=== PATIENT | female | born 1955 | race Caucasian/White ===

== ENCOUNTER 2017-04-18 22:46 | Emergency (ER) | payer MEDICAID ==
[~2017-04-18] VITALS: Ht 149.9 cm; Wt 50.0 kg
[~2017-04-18 22:46] MED LIST: SYNTHROID PO
[2017-04-18] MEDS ORDERED: SODIUM CHLORIDE 0.9% 1,000ML IVBOLUS ONE (23:30)
[2017-04-18] MEDS ORDERED: ONDANSETRON 2MG/ML, 2ML IVPush ONE (23:30)
[2017-04-18] MEDS ORDERED: ONDANSETRON 2MG/ML, 2ML ONE (23:32)
[2017-04-18 23:58] LABS: ASPARTATE AMINO TRANSFERASE 63 U/L (15-37); BLOOD UREA NITROGEN 17 mg/dL (7-18)
[2017-04-19] MEDS ORDERED: FAMOTIDINE 20 MG/2 ML ONE (00:26)
[2017-04-19] MEDS ORDERED: FAMOTIDINE 20 MG/2 ML IVPush ONE (00:30)
[2017-04-19] MEDS ORDERED: PROMETHAZINE 25 MG/ML, 1ML IM ONE (02:30)
[2017-04-19] MEDS ORDERED: PROMETHAZINE 25 MG/ML, 1ML ONE (02:57)
[2017-04-19 03:06] VITALS: BP 125/77
== END 2017-04-19 04:08 | disposition home or self-care (01) ==
LOC: ED 23:59
DX: K29.20 Alcoholic gastritis without bleeding (principal)
CPT/HCPCS: 36415; 80053; 83690; 85025; 96361; 96372; 96374; 96375; 99284; J2405; J2550; J7030; S0028

== ENCOUNTER 2017-06-04 09:49 | Inpatient (IN) | payer MEDICAID ==
[~2017-06-04] VITALS: Ht 149.9 cm; Wt 52.1 kg
[2017-06-04] MEDS ORDERED: ONDANSETRON 2MG/ML, 2ML ONE (10:21)
[2017-06-04] MEDS ORDERED: LORazepam 2 MG/ML, 1ML ONE (10:22)
[2017-06-04 10:28] LABS: HEMOGLOBIN 16.7 g/dL (11.7-16.4); WHITE BLOOD COUNT 11.5 x10^3/uL (3.4-10)
[2017-06-04] MEDS ORDERED: LORazepam 2 MG/ML, 1ML IVPush ONE ×2 (10:30→14:00)
[2017-06-04] MEDS ORDERED: ASPIRIN 81 MG TABLET CHEW PO ONE (10:30)
[2017-06-04] MEDS ORDERED: ONDANSETRON 2MG/ML, 2ML IVPush ONE (10:30)
[2017-06-04] MEDS ORDERED: SODIUM CHLORIDE FLUSH 10ML SYR IVF ONE (10:30)
[2017-06-04] MEDS ORDERED: SODIUM CHLORIDE 0.9% 1,000ML IVBOLUS ONE ×2 (10:30→11:30)
[2017-06-04 10:40] LABS: ASPARTATE AMINO TRANSFERASE 156 U/L (15-37); BLOOD UREA NITROGEN 17 mg/dL (7-18)
[2017-06-04 10:53] LABS: IS PT STATUS REG ER OR PRE ER? YES
[2017-06-04 12:11] LABS: DAU SCREEN DISCLAIMER
[2017-06-04 13:18] LABS: GASTRIC OCCULT BLD POSITIVE (NEGATIVE)
[2017-06-04 13:19] LABS: GAS OBC PASS; GASTRIC PH 2 (1-7)
[2017-06-04] MEDS ORDERED: PANTOPRAZOLE 40 MG IV ONE (13:55)
[2017-06-04] MEDS ORDERED: PANTOPRAZOLE 40 MG IV IVPush ONE (14:00)
[2017-06-04] MEDS ORDERED: ONDANSETRON 2MG/ML, 2ML IVPush PRN (15:30)
[2017-06-04] MEDS ORDERED: hydrALAzine 20 MG/ML, 1ML IVPush PRN (15:30)
[2017-06-04] MEDS ORDERED: LORazepam 2 MG/ML, 1ML IV PRN ×4 (15:30)
[2017-06-04] MEDS ORDERED: morphine SULFATE 10 MG/ML, 1ML IVPush PRN (15:30)
[2017-06-04 15:55] LABS: BLOOD UREA NITROGEN 15 mg/dL (7-18)
[2017-06-04 15:57] LABS: ABG COLLECTION SITE RIGHT RADIAL; COLLATERAL CIRCULATION TESTING NORMAL
[2017-06-04 16:00] VITALS: BP 132/82
[2017-06-04 16:04] LABS: IS PT STATUS REG ER OR PRE ER? NO
[2017-06-04] MEDS: SUCRALFATE 1 GM/10 ML UDC PO SCH ×2 (17:22→20:53)
[2017-06-04] MEDS: POTASSIUM CHLORIDE 20 MEQ, MAGNESIUM SULFATE 1 GM, THIAMINE 100 MG, FOLIC ACID 1 MG, MV... IV SCH (17:34)
[2017-06-04 17:39] VITALS: BP 114/76
[2017-06-04 20:00] VITALS: BP 116/73
[2017-06-04] MEDS: PANTOPRAZOLE 40 MG IV IVPush SCH (20:53)
[2017-06-04] MEDS: OXYcodone IR 5MG TABLET PO PRN (21:01)
[2017-06-05 02:00] VITALS: BP 109/74
[2017-06-05 05:45] LABS: HEMOGLOBIN 13.3 g/dL (11.7-16.4)
[2017-06-05 05:53] LABS: BLOOD UREA NITROGEN 11 mg/dL (7-18)
[2017-06-05 05:56] LABS: ASPARTATE AMINO TRANSFERASE 62 U/L (15-37)
[2017-06-05] MEDS: LEVOTHYROXINE 100 MCG TABLET PO SCH (05:57)
[2017-06-05 08:24] VITALS: BP 121/78
[2017-06-05] MEDS: SUCRALFATE 1 GM/10 ML UDC PO SCH ×4 (08:34→19:55)
[2017-06-05] MEDS: OXYcodone IR 5MG TABLET PO PRN ×3 (08:34→17:28)
[2017-06-05] MEDS: PANTOPRAZOLE 40 MG IV IVPush SCH ×2 (08:34→19:55)
[2017-06-05] MEDS ORDERED: LORazepam 2 MG/ML, 1ML IV PRN (11:00)
[2017-06-05] MEDS: SODIUM CHLORIDE 0.9% 1,000 ML IV SCH (14:58)
[2017-06-05 15:00] VITALS: BP 114/67
[2017-06-05] MEDS: POTASSIUM CHLORIDE 20 MEQ, MAGNESIUM SULFATE 1 GM, THIAMINE 100 MG, FOLIC ACID 1 MG, MV... IV SCH (17:05)
[2017-06-05 18:52] VITALS: BP 112/70
[2017-06-06] MEDS: OXYcodone IR 5MG TABLET PO PRN ×4 (00:20→08:45)
[2017-06-06 01:00] VITALS: BP 107/65
[2017-06-06 05:41] LABS: HEMATOCRIT 39.5 % (34.6-47.8); HEMOGLOBIN 13.3 g/dL (11.7-16.4); WHITE BLOOD COUNT 4.2 x10^3/uL (3.4-10)
[2017-06-06 06:09] LABS: ASPARTATE AMINO TRANSFERASE 43 U/L (15-37); BLOOD UREA NITROGEN 7 mg/dL (7-18)
[2017-06-06] MEDS: LEVOTHYROXINE 100 MCG TABLET PO SCH (06:18)
[2017-06-06 06:43] VITALS: BP 122/72
[2017-06-06] MEDS: SUCRALFATE 1 GM/10 ML UDC PO SCH ×2 (08:41→12:20)
[2017-06-06] MEDS: PANTOPRAZOLE 40 MG IV IVPush SCH (08:41)
[2017-06-06] MEDS: SODIUM CHLORIDE 0.9% 1,000 ML IV SCH (12:21)
[2017-06-06 12:28] VITALS: BP 145/73
[2017-06-06] MEDS ORDERED: FOLI-17 PO (14:53)
[2017-06-06] MEDS ORDERED: SUCR1ORA5 PO (14:53)
[2017-06-06] MEDS ORDERED: THIA100T6 PO (14:53)
[2017-06-06] MEDS ORDERED: PANT40TA3 PO (14:53)
[2017-06-07] MEDS ORDERED: FOLIC ACID 1 MG TABLET PO SCH (09:00)
[2017-06-07] MEDS ORDERED: MULTIVITAMIN 1 TABLET PO SCH (09:00)
[2017-06-07] MEDS ORDERED: THIAMINE 100MG TABLET PO SCH (09:00)
== END 2017-06-06 15:44 | disposition home or self-care (01) | DRG 392 ==
LOC: ED 10:51 → EDIP 13:51 → 4NOR 16:03 → 4WST 17:30
PROVIDERS: ADMIT Family Medicine; ATTEND Family Medicine
DX: K21.0 Gastro-esophageal reflux disease with esophagitis (principal); E87.2 Acidosis; K74.60 Unspecified cirrhosis of liver; E44.1 Mild protein-calorie malnutrition; E83.39 Other disorders of phosphorus metabolism; K86.0 Alcohol-induced chronic pancreatitis; B18.2 Chronic viral hepatitis C; D18.03 Hemangioma of intra-abdominal structures; E03.9 Hypothyroidism, unspecified; E86.0 Dehydration; F10.10 Alcohol abuse, uncomplicated; F12.90 Cannabis use, unspecified, uncomplicated; F41.1 Generalized anxiety disorder; I51.7 Cardiomegaly; K22.9 Disease of esophagus, unspecified; K44.9 Diaphragmatic hernia without obstruction or gangrene; Z59.0 Homelessness; Z68.23 Body mass index [BMI] 23.0-23.9, adult; Z79.82 Long term (current) use of aspirin; Z82.49 Family history of ischemic heart disease and other diseases of the circulatory system; Z87.11 Personal history of peptic ulcer disease; Z90.89 Acquired absence of other organs
CPT/HCPCS: 36415; 36600; 71010; 71275; 76700; 80048; 80053; 80307; 81001; 82271; 82550; 82803; 83690; 83735; 83880; 84100; 84439; 84443; 84484; 85025; 85610; 85730; 93005; 93306; 96361; 96374; 96375; J2405; J3411; J3475; J3480; C9113; J2060; J7030

== ENCOUNTER 2018-01-15 18:14 | Emergency (ER) | payer MEDICAID ==
[~2018-01-15] VITALS: Ht 149.9 cm; Wt 50.0 kg
[~2018-01-15 18:14] MED LIST changes: +FOLI-17 PO; +PANT40TA3 PO; +SUCR1ORA5 PO; +THIA100T6 PO
[2018-01-15] MEDS ORDERED: PROM25SU34 RC (18:40)
[2018-01-15] MEDS ORDERED: METOCLOPRAMIDE 5 MG/ML, 2ML ONE (18:57)
[2018-01-15] MEDS ORDERED: METOCLOPRAMIDE 5 MG/ML, 2ML IVPush ONE (19:00)
[2018-01-15] MEDS ORDERED: SODIUM CHLORIDE 0.9% 1,000ML IVBOLUS ONE (19:00)
[2018-01-15 19:06] LABS: BASOPHILS # (AUTO) 0.01 x10^3/uL (0-0.1); BASOPHILS % (AUTO) 0 % (0-1); EOSINOPHILS # (AUTO) 0.04 x10^3/uL (0-0.4); EOSINOPHILS % (AUTO) 1 % (1-7); LYMPHOCYTES # (AUTO) 0.97 x10^3/uL (1-3.4); LYMPHOCYTES % (AUTO) 29 % (22-44); MD NO; MEAN CORPUSCULAR HGB CONC 34.4 g/dL (32.4-35.8); MEAN CORPUSCULAR VOLUME 98.8 fL (80-100); MEAN PLATELET VOLUME 7.3 fL (7.4-10.4); MONOCYTES # (AUTO) 0.35 x10^3/uL (0.2-0.8); MONOCYTES % (AUTO) 10 % (2-9); NEUTROPHILS # (AUTO) 2.04 x10^3/uL (1.8-6.8); NEUTROPHILS % (AUTO) 60 % (42-75); PLATELET COUNT 242 x10^3/uL (130-400); RED BLOOD COUNT 4.35 x10^6/uL (3.82-5.3); RED CELL DISTRIBUTION WIDTH 13.8 % (9.6-15.2)
[2018-01-15 19:17] LABS: ALANINE AMINOTRANSFERASE 225 U/L (12-78); ALBUMIN 3.5 g/dL (3.4-5.0); ANION GAP 15 mmol/L (5-15); CALCIUM 8.1 mg/dL (8.5-10.1); CHLORIDE 100 mmol/L (98-107); CREATININE 0.72 mg/dL (0.55-1.02)
[2018-01-15 19:19] LABS: ALKALINE PHOSPHATASE 89 U/L (45-117); BILIRUBIN,TOTAL 0.8 mg/dL (0.2-1.0); TOTAL PROTEIN 7.2 g/dL (6.4-8.2)
[2018-01-15 19:27] LABS: TROPONIN I < 0.015 ng/mL (0.000-0.045)
[2018-01-15 19:32] VITALS: BP 132/71
== END 2018-01-15 19:53 | disposition home or self-care (01) ==
LOC: ED 19:35
DX: F10.120 Alcohol abuse with intoxication, uncomplicated (principal); K20.9 Esophagitis, unspecified; Z79.899 Other long term (current) drug therapy
CPT/HCPCS: 36415; 80053; 80307; 83690; 84484; 85025; 96374; 99284; J2765; J7030

== ENCOUNTER 2018-04-11 17:21 | Inpatient (IN) | payer MEDICAID ==
[~2018-04-11] VITALS: Ht 149.9 cm; Wt 53.8 kg
[~2018-04-11 17:21] MED LIST changes: +PROM25SU34 RC
[2018-04-11] MEDS ORDERED: PANTOPRAZOLE 80 MG in SODIUM CHLORIDE 0.9% 50 ML IVPB ONE (18:19)
[2018-04-11] MEDS ORDERED: METOCLOPRAMIDE 5 MG/ML, 2ML ONE (18:27)
[2018-04-11] MEDS ORDERED: METOCLOPRAMIDE 5 MG/ML, 2ML IVPush ONE (18:30)
[2018-04-11] MEDS ORDERED: SODIUM CHLORIDE 0.9% 1,000ML IVBOLUS ONE (18:30)
[2018-04-11 18:42] LABS: BASOPHILS # (AUTO) 0.03 x10^3/uL (0-0.1); BASOPHILS % (AUTO) 0 % (0-1); EOSINOPHILS % (AUTO) 0 % (1-7); LYMPHOCYTES # (AUTO) 0.94 x10^3/uL (1-3.4); LYMPHOCYTES % (AUTO) 14 % (22-44); MD NO; MEAN CORPUSCULAR HEMOGLOBIN 35.1 pg (27.0-34.8); MEAN CORPUSCULAR HGB CONC 33.4 g/dL (32.4-35.8); MEAN CORPUSCULAR VOLUME 104.9 fL (80-100); MEAN PLATELET VOLUME 7.7 fL (7.4-10.4); MONOCYTES % (AUTO) 9 % (2-9); NEUTROPHILS # (AUTO) 5.04 x10^3/uL (1.8-6.8); NEUTROPHILS % (AUTO) 76 % (42-75); PLATELET COUNT 213 x10^3/uL (130-400); RED BLOOD COUNT 4.19 x10^6/uL (3.82-5.3); RED CELL DISTRIBUTION WIDTH 14.8 % (9.6-15.2)
[2018-04-11 18:52] LABS: INTERNATIONAL NORMALIZED RATIO 0.98 (0.93-1.1); PROTHROMBIN TIME 10.1 Seconds (9.6-11.5)
[2018-04-11 18:56] LABS: ALBUMIN 3.8 g/dL (3.4-5.0); ANION GAP 28 mmol/L (5-15); CALCIUM 8.3 mg/dL (8.5-10.1); CHLORIDE 96 mmol/L (98-107)
[2018-04-11 19:00] LABS: ALANINE AMINOTRANSFERASE 153 U/L (12-78); ALKALINE PHOSPHATASE 161 U/L (45-117); BILIRUBIN,TOTAL 0.7 mg/dL (0.2-1.0); CREATININE 0.77 mg/dL (0.55-1.02); TOTAL PROTEIN 7.9 g/dL (6.4-8.2)
[2018-04-11] MEDS ORDERED: SODIUM CHLORIDE 0.9% 1,000 ML IV ONE (19:45)
[2018-04-11] MEDS ORDERED: PROMETHAZINE 25 MG/ML, 1ML IM PRN (20:00)
[2018-04-11] MEDS ORDERED: ONDANSETRON 2MG/ML, 2ML IVPush PRN (20:00)
[2018-04-11 20:48] VITALS: BP 148/82
[2018-04-11] MEDS ORDERED: hydrALAzine 20 MG/ML, 1ML IVPush PRN (21:00)
[2018-04-11] MEDS ORDERED: DOCUSATE 100 MG CAPSULE PO PRN (21:00)
[2018-04-11] MEDS ORDERED: POTASSIUM CHLORIDE 20 MEQ TAB.ER.PRT PO ONE (21:00)
[2018-04-11] MEDS ORDERED: BISACODYL 10 MG SUPP PR PRN (21:00)
[2018-04-11] MEDS ORDERED: PROMETHAZINE 25 MG SUPP PR PRN (21:00)
[2018-04-11] MEDS ORDERED: POLYETHYLENE GLYCOL 17 GM PACKET PO PRN (21:00)
[2018-04-11] MEDS ORDERED: ACETAMINOPHEN 325 MG TABLET PO PRN (21:00)
[2018-04-11] MEDS ORDERED: LORazepam 2 MG/ML, 1ML IVPush PRN (21:00)
[2018-04-11] MEDS: BACLOFEN 10 MG TABLET PO SCH (22:15)
[2018-04-11] MEDS: ONDANSETRON 2MG/ML, 2ML IVPush PRN (22:15)
[2018-04-11] MEDS: POTASSIUM CHLORIDE 20 MEQ, MAGNESIUM SULFATE 1 GM, MVI ADULT 10 ML, THIAMINE 200 MG, FO... IV SCH (22:15)
[2018-04-11] MEDS: SUCRALFATE 1 GM TABLET PO SCH (22:15)
[2018-04-12 00:06] VITALS: BP 117/71
[2018-04-12] MEDS: LEVOTHYROXINE 100 MCG TABLET PO SCH (06:21)
[2018-04-12] MEDS: ONDANSETRON 2MG/ML, 2ML IVPush PRN ×2 (06:23→14:55)
[2018-04-12 06:40] VITALS: BP 125/77
[2018-04-12 06:45] LABS: BASOPHILS # (AUTO) 0.02 x10^3/uL (0-0.1); BASOPHILS % (AUTO) 0 % (0-1); EOSINOPHILS # (AUTO) 0.05 x10^3/uL (0-0.4); EOSINOPHILS % (AUTO) 1 % (1-7); LYMPHOCYTES # (AUTO) 1.12 x10^3/uL (1-3.4); LYMPHOCYTES % (AUTO) 22 % (22-44); MD NO; MEAN CORPUSCULAR HEMOGLOBIN 34.9 pg (27.0-34.8); MEAN CORPUSCULAR HGB CONC 33.6 g/dL (32.4-35.8); MEAN PLATELET VOLUME 7.3 fL (7.4-10.4); MONOCYTES # (AUTO) 0.73 x10^3/uL (0.2-0.8); MONOCYTES % (AUTO) 14 % (2-9); NEUTROPHILS # (AUTO) 3.26 x10^3/uL (1.8-6.8); NEUTROPHILS % (AUTO) 63 % (42-75); PLATELET COUNT 160 x10^3/uL (130-400); RED BLOOD COUNT 3.55 x10^6/uL (3.82-5.3); RED CELL DISTRIBUTION WIDTH 14.7 % (9.6-15.2)
[2018-04-12 06:48] LABS: ALBUMIN 2.9 g/dL (3.4-5.0); ANION GAP 17 mmol/L (5-15); CALCIUM 7.3 mg/dL (8.5-10.1); CHLORIDE 103 mmol/L (98-107)
[2018-04-12 06:51] LABS: ALANINE AMINOTRANSFERASE 102 U/L (12-78); ALKALINE PHOSPHATASE 117 U/L (45-117); BILIRUBIN,TOTAL 1.1 mg/dL (0.2-1.0); CREATININE 0.67 mg/dL (0.55-1.02); TOTAL PROTEIN 6.1 g/dL (6.4-8.2)
[2018-04-12] MEDS: SUCRALFATE 1 GM TABLET PO SCH ×4 (09:43→20:54)
[2018-04-12] MEDS: BACLOFEN 10 MG TABLET PO SCH ×3 (09:43→20:54)
[2018-04-12] MEDS: PANTOPROZOLE 40MG TABLET PO SCH (09:43)
[2018-04-12] MEDS: SODIUM BICARB 8.4%,50ML SYR. 50 MEQ in D5%-0.45% NACL 1,000 ML IV SCH (09:44)
[2018-04-12 12:09] VITALS: BP 133/82
[2018-04-12 18:50] VITALS: BP 115/77
[2018-04-12] MEDS: POTASSIUM CHLORIDE 20 MEQ, MAGNESIUM SULFATE 1 GM, MVI ADULT 10 ML, THIAMINE 200 MG, FO... IV SCH (20:54)
[2018-04-13 01:40] VITALS: BP 123/77
[2018-04-13 05:44] LABS: CHLORIDE 102 mmol/L (98-107)
[2018-04-13 05:52] LABS: BASOPHILS # (AUTO) 0.01 x10^3/uL (0-0.1); BASOPHILS % (AUTO) 0 % (0-1); EOSINOPHILS # (AUTO) 0.13 x10^3/uL (0-0.4); EOSINOPHILS % (AUTO) 3 % (1-7); LYMPHOCYTES # (AUTO) 1.14 x10^3/uL (1-3.4); LYMPHOCYTES % (AUTO) 30 % (22-44); MD NO; MEAN CORPUSCULAR HEMOGLOBIN 34.9 pg (27.0-34.8); MEAN CORPUSCULAR HGB CONC 33.8 g/dL (32.4-35.8); MEAN CORPUSCULAR VOLUME 103.4 fL (80-100); MEAN PLATELET VOLUME 7.7 fL (7.4-10.4); MONOCYTES # (AUTO) 0.58 x10^3/uL (0.2-0.8); MONOCYTES % (AUTO) 15 % (2-9); NEUTROPHILS % (AUTO) 52 % (42-75); PLATELET COUNT 140 x10^3/uL (130-400); RED BLOOD COUNT 3.61 x10^6/uL (3.82-5.3); RED CELL DISTRIBUTION WIDTH 14.4 % (9.6-15.2)
[2018-04-13 06:03] LABS: ALANINE AMINOTRANSFERASE 84 U/L (12-78); ALBUMIN 2.8 g/dL (3.4-5.0); ALKALINE PHOSPHATASE 119 U/L (45-117); ANION GAP 8 mmol/L (5-15); CALCIUM 7.8 mg/dL (8.5-10.1); CREATININE 0.58 mg/dL (0.55-1.02); TOTAL PROTEIN 5.8 g/dL (6.4-8.2)
[2018-04-13] MEDS: LEVOTHYROXINE 100 MCG TABLET PO SCH (06:38)
[2018-04-13] MEDS: SUCRALFATE 1 GM TABLET PO SCH ×2 (06:38→11:00)
[2018-04-13 06:50] VITALS: BP 126/70
[2018-04-13] MEDS: SODIUM BICARB 8.4%,50ML SYR. 50 MEQ in D5%-0.45% NACL 1,000 ML IV SCH (07:30)
[2018-04-13] MEDS: PANTOPROZOLE 40MG TABLET PO SCH (07:30)
[2018-04-13] MEDS: BACLOFEN 10 MG TABLET PO SCH (07:30)
[2018-04-13] MEDS ORDERED: BACL-19 PO (08:26)
[2018-04-13] MEDS ORDERED: PNEUMOCOCCAL 23 VACCINE IM-VACC ONE (08:30)
== END 2018-04-13 12:02 | disposition home or self-care (01) | DRG 433 ==
LOC: ED 20:23 → EDIP 20:33 → 3NE 20:36 → DCLOUNGE 04-13 11:55
PROVIDERS: ADMIT Internal Medicine; ATTEND Internal Medicine
DX: K70.10 Alcoholic hepatitis without ascites (principal); E87.2 Acidosis; F10.239 Alcohol dependence with withdrawal, unspecified; B18.2 Chronic viral hepatitis C; E03.9 Hypothyroidism, unspecified; E16.2 Hypoglycemia, unspecified; E86.0 Dehydration; F41.1 Generalized anxiety disorder; B19.20 Unspecified viral hepatitis C without hepatic coma; K21.9 Gastro-esophageal reflux disease without esophagitis; K74.60 Unspecified cirrhosis of liver; K76.0 Fatty (change of) liver, not elsewhere classified; Z82.49 Family history of ischemic heart disease and other diseases of the circulatory system; Z87.11 Personal history of peptic ulcer disease; Z83.3 Family history of diabetes mellitus; Z87.891 Personal history of nicotine dependence
CPT/HCPCS: 36415; 80053; 80307; 83690; 83735; 84100; 85014; 85018; 85025; 85610; 86850; 86900; 90732; 93005; J2405; J3411; J3475; J3480; C9113; J2060; J2765; J7030

== ENCOUNTER 2018-09-16 22:01 | Inpatient (IN) | payer MEDICAID ==
[~2018-09-16] VITALS: Ht 149.9 cm; Wt 51.4 kg
[~2018-09-16 22:01] MED LIST changes: +BACL-19 PO; -THIA100T6 PO; +THIA100T67 PO
[2018-09-16] MEDS ORDERED: PANTOPRAZOLE 80 MG in SODIUM CHLORIDE 0.9% 50 ML IVPB ONE (22:20)
[2018-09-16] MEDS ORDERED: PANTOPRAZOLE 40 MG IV ONE (22:29)
[2018-09-16] MEDS ORDERED: SODIUM CHLORIDE FLUSH 10ML SYR IVF ONE (22:30)
[2018-09-16] MEDS ORDERED: PANTOPRAZOLE 40 MG IV IVPush ONE (22:30)
[2018-09-16] MEDS ORDERED: SODIUM CHLORIDE 0.9% 1,000ML IVBOLUS ONE (22:30)
[2018-09-16 22:39] LABS: BASOPHILS # (AUTO) 0.02 x10^3/uL (0-0.1); BASOPHILS % (AUTO) 0 % (0-1); EOSINOPHILS # (AUTO) 0.01 x10^3/uL (0-0.4); EOSINOPHILS % (AUTO) 0 % (1-7); LYMPHOCYTES # (AUTO) 0.81 x10^3/uL (1-3.4); LYMPHOCYTES % (AUTO) 12 % (22-44); MD NO; MEAN CORPUSCULAR HEMOGLOBIN 34.9 pg (27.0-34.8); MEAN CORPUSCULAR HGB CONC 33.9 g/dL (32.4-35.8); MEAN PLATELET VOLUME 7.5 fL (7.4-10.4); MONOCYTES # (AUTO) 0.65 x10^3/uL (0.2-0.8); MONOCYTES % (AUTO) 9 % (2-9); NEUTROPHILS # (AUTO) 5.53 x10^3/uL (1.8-6.8); NEUTROPHILS % (AUTO) 79 % (42-75); PLATELET COUNT 238 x10^3/uL (130-400); RED BLOOD COUNT 4.55 x10^6/uL (3.82-5.3); RED CELL DISTRIBUTION WIDTH 14.6 % (9.6-15.2)
[2018-09-16 22:48] LABS: ALANINE AMINOTRANSFERASE 104 U/L (12-78); ALBUMIN 3.7 g/dL (3.4-5.0); ANION GAP 27 mmol/L (5-15); CALCIUM 8.9 mg/dL (8.5-10.1); CHLORIDE 97 mmol/L (98-107)
[2018-09-16 22:51] LABS: ALKALINE PHOSPHATASE 195 U/L (45-117); BILIRUBIN,TOTAL 0.6 mg/dL (0.2-1.0); CREATININE 0.72 mg/dL (0.55-1.02); TOTAL PROTEIN 8.4 g/dL (6.4-8.2)
[2018-09-16] MEDS ORDERED: ONDANSETRON 2MG/ML, 2ML ONE (22:51)
[2018-09-16] MEDS ORDERED: LORazepam 2 MG/ML, 1ML ONE (22:52)
[2018-09-16 22:55] LABS: PROTHROMBIN TIME 10.6 Seconds (9.6-11.5)
[2018-09-16] MEDS ORDERED: LORazepam 2 MG/ML, 1ML IVPush ONE (23:00)
[2018-09-16] MEDS ORDERED: ONDANSETRON 2MG/ML, 2ML IVPush ONE (23:00)
[2018-09-16 23:17] LABS: MICROSCOPIC INDICATED
[2018-09-16 23:25] LABS: CULTURE INDICATED? NO
[2018-09-17] MEDS ORDERED: POLYETHYLENE GLYCOL 17 GM PACKET PO PRN
[2018-09-17] MEDS ORDERED: morphine SULFATE 10 MG/ML, 1ML IVPush PRN
[2018-09-17] MEDS ORDERED: BISACODYL 10 MG SUPP PR PRN
[2018-09-17] MEDS ORDERED: ACETAMINOPHEN 325 MG TABLET PO PRN
[2018-09-17] MEDS ORDERED: hydrALAzine 20 MG/ML, 1ML IVPush PRN
[2018-09-17 00:11] VITALS: BP 131/85
[2018-09-17] MEDS: SODIUM CHLORIDE 0.9% 1,000 ML IV SCH ×3 (00:44→10:46)
[2018-09-17] MEDS: THIAMINE 100MG TABLET PO SCH ×3 (00:45→20:27)
[2018-09-17] MEDS: PANTOPRAZOLE 40 MG IV IVPush SCH ×2 (00:45→11:37)
[2018-09-17] MEDS: SUCRALFATE 1 GM/10 ML UDC PO SCH ×3 (00:45→11:37)
[2018-09-17] MEDS ORDERED: SODIUM CHLORIDE 0.9%, 500ML IVBOLUS ONE (01:30)
[2018-09-17 03:16] VITALS: BP 128/71
[2018-09-17 05:16] LABS: ANION GAP 22 mmol/L (5-15); CALCIUM 7.3 mg/dL (8.5-10.1); CHLORIDE 106 mmol/L (98-107)
[2018-09-17 05:21] LABS: ALANINE AMINOTRANSFERASE 79 U/L (12-78); ALKALINE PHOSPHATASE 144 U/L (45-117); BILIRUBIN,TOTAL 0.7 mg/dL (0.2-1.0); CREATININE 0.57 mg/dL (0.55-1.02); TOTAL PROTEIN 6.5 g/dL (6.4-8.2)
[2018-09-17 05:22] LABS: MEAN CORPUSCULAR HEMOGLOBIN 35.4 pg (27.0-34.8); MEAN CORPUSCULAR HGB CONC 34.4 g/dL (32.4-35.8); MEAN CORPUSCULAR VOLUME 102.7 fL (80-100); MEAN PLATELET VOLUME 7.6 fL (7.4-10.4); PLATELET COUNT 180 x10^3/uL (130-400); RED BLOOD COUNT 3.59 x10^6/uL (3.82-5.3); RED CELL DISTRIBUTION WIDTH 14.1 % (9.6-15.2)
[2018-09-17] MEDS: ONDANSETRON 2MG/ML, 2ML IVPush PRN ×2 (05:55→23:05)
[2018-09-17 06:03] LABS: BASOPHILS # (AUTO) 0.02 x10^3/uL (0-0.1); BASOPHILS % (AUTO) 0 % (0-1); EOSINOPHILS # (AUTO) 0.02 x10^3/uL (0-0.4); EOSINOPHILS % (AUTO) 0 % (1-7); LYMPHOCYTES # (AUTO) 0.99 x10^3/uL (1-3.4); LYMPHOCYTES % (AUTO) 15 % (22-44); MD SCAN; MONOCYTES # (AUTO) 0.85 x10^3/uL (0.2-0.8); MONOCYTES % (AUTO) 13 % (2-9); NEUTROPHILS # (AUTO) 4.84 x10^3/uL (1.8-6.8); NEUTROPHILS % (AUTO) 72 % (42-75)
[2018-09-17] MEDS: HEPARIN 5,000 UNITS/ML, 1ML SQ SCH ×2 (08:00)
[2018-09-17] MEDS: LEVOTHYROXINE 100 MCG TABLET PO SCH (08:57)
[2018-09-17] MEDS: FOLIC ACID 1 MG TABLET PO SCH (08:57)
[2018-09-17] MEDS: SENNA/DOCUSATE TABLET PO SCH (08:57)
[2018-09-17 09:57] VITALS: BP 133/74
[2018-09-17] MEDS ORDERED: LORazepam 1MG TABLET PO PRN ×4 (11:30)
[2018-09-17] MEDS ORDERED: LORazepam 2 MG/ML, 1ML IV PRN ×5 (11:30)
[2018-09-17] MEDS: LORazepam 0.5MG TABLET PO PRN ×2 (11:37→17:54)
[2018-09-17] MEDS ORDERED: D5%-0.9% NACL 1,000 ML IV SCH (12:30)
[2018-09-17 12:44] LABS: ALBUMIN 3.1 g/dL (3.4-5.0); ANION GAP 19 mmol/L (5-15); CALCIUM 7.3 mg/dL (8.5-10.1); CHLORIDE 108 mmol/L (98-107); CREATININE 0.73 mg/dL (0.55-1.02)
[2018-09-17] MEDS: SODIUM BICARBONATE 8.4% 150 MEQ in DEXTROSE 5% 1,000 ML IV SCH (13:19)
[2018-09-17] MEDS ORDERED: SODIUM PHOSPHATE IV ONE (13:30)
[2018-09-17] MEDS ORDERED: CALCIUM GLUCONATE 9.2 MEQ in SODIUM CHLORIDE 0.9% 100 ML IV ONE (13:30)
[2018-09-17] MEDS ORDERED: SODIUM CHLORIDE 0.45% IV ONE (13:30)
[2018-09-17] MEDS ORDERED: MAGNESIUM SULFATE PMX 2GM/50ML 50 ML IV ONE ×2 (13:30)
[2018-09-17] MEDS ORDERED: MAGNESIUM SULF. PMX 20GM/500ML 500 ML IV PRN (13:30)
[2018-09-17 15:00] VITALS: BP 121/74
[2018-09-17 16:08] VITALS: BP 128/72
[2018-09-17 19:22] VITALS: BP 128/73
[2018-09-18 00:58] VITALS: BP 121/67
[2018-09-18] MEDS: PANTOPRAZOLE 40 MG IV IVPush SCH ×2 (02:26→11:32)
[2018-09-18] MEDS: SODIUM BICARBONATE 8.4% 150 MEQ in DEXTROSE 5% 1,000 ML IV SCH ×3 (02:26→17:18)
[2018-09-18 05:38] LABS: ALBUMIN 2.8 g/dL (3.4-5.0); ANION GAP 10 mmol/L (5-15); CHLORIDE 96 mmol/L (98-107)
[2018-09-18 05:43] LABS: ALANINE AMINOTRANSFERASE 61 U/L (12-78); ALKALINE PHOSPHATASE 126 U/L (45-117); BILIRUBIN,TOTAL 1.4 mg/dL (0.2-1.0); CREATININE 0.59 mg/dL (0.55-1.02); TOTAL PROTEIN 5.9 g/dL (6.4-8.2)
[2018-09-18] MEDS ORDERED: POTASSIUM PHOSPHATE 44 MEQ in SODIUM CHLORIDE 0.9% 500 ML IV ONE (06:00)
[2018-09-18] MEDS ORDERED: MAGNESIUM SULFATE PMX 2GM/50ML 50 ML IV ONE (06:00)
[2018-09-18 07:14] VITALS: BP 116/73
[2018-09-18] MEDS: SENNA/DOCUSATE TABLET PO SCH (08:27)
[2018-09-18] MEDS: LEVOTHYROXINE 100 MCG TABLET PO SCH (08:27)
[2018-09-18] MEDS: MULTIVITAMIN 1 TABLET PO SCH (08:27)
[2018-09-18] MEDS: POTASSIUM CHLORIDE 20 MEQ TAB.ER.PRT PO SCH ×2 (08:27→17:18)
[2018-09-18] MEDS: FOLIC ACID 1 MG TABLET PO SCH (08:27)
[2018-09-18] MEDS: THIAMINE 100MG TABLET PO SCH ×2 (08:27→19:51)
[2018-09-18 12:47] VITALS: BP 120/70
[2018-09-18] MEDS: D5%-0.9% NACL 1,000 ML IV SCH (14:07)
[2018-09-18 14:10] LABS: OCCULT BLOOD POSITIVE (NEGATIVE)
[2018-09-18 16:16] LABS: OCCULT BLOOD POSITIVE (NEGATIVE)
[2018-09-18 18:53] VITALS: BP 114/73
[2018-09-19] MEDS: PANTOPRAZOLE 40 MG IV IVPush SCH ×2 (00:22→13:24)
[2018-09-19 00:46] VITALS: BP 110/69
[2018-09-19] MEDS: LORazepam 0.5MG TABLET PO PRN ×2 (00:54→17:18)
[2018-09-19] MEDS: SODIUM BICARBONATE 8.4% 150 MEQ in DEXTROSE 5% 1,000 ML IV SCH (00:54)
[2018-09-19] MEDS: D5%-0.9% NACL 1,000 ML IV SCH ×2 (01:57→17:18)
[2018-09-19 05:51] LABS: ALBUMIN 2.5 g/dL (3.4-5.0); CALCIUM 7.5 mg/dL (8.5-10.1); CHLORIDE 100 mmol/L (98-107)
[2018-09-19 05:56] LABS: ALANINE AMINOTRANSFERASE 57 U/L (12-78); ALKALINE PHOSPHATASE 118 U/L (45-117); ANION GAP 7 mmol/L (5-15); TOTAL PROTEIN 5.6 g/dL (6.4-8.2)
[2018-09-19 06:55] VITALS: BP 110/66
[2018-09-19 07:12] LABS: MEAN CORPUSCULAR HEMOGLOBIN 35.1 pg (27.0-34.8); MEAN CORPUSCULAR HGB CONC 34.1 g/dL (32.4-35.8); MEAN CORPUSCULAR VOLUME 102.9 fL (80-100); MEAN PLATELET VOLUME 8.7 fL (7.4-10.4); PLATELET COUNT 122 x10^3/uL (130-400); RED BLOOD COUNT 3.51 x10^6/uL (3.82-5.3)
[2018-09-19 07:14] LABS: BASOPHILS # (AUTO) 0.01 x10^3/uL (0-0.1); BASOPHILS % (AUTO) 0 % (0-1); EOSINOPHILS # (AUTO) 0.13 x10^3/uL (0-0.4); EOSINOPHILS % (AUTO) 3 % (1-7); LYMPHOCYTES # (AUTO) 0.77 x10^3/uL (1-3.4); LYMPHOCYTES % (AUTO) 19 % (22-44); MD SCAN; MONOCYTES % (AUTO) 10 % (2-9); NEUTROPHILS # (AUTO) 2.83 x10^3/uL (1.8-6.8); NEUTROPHILS % (AUTO) 68 % (42-75)
[2018-09-19] MEDS: FOLIC ACID 1 MG TABLET PO SCH (08:07)
[2018-09-19] MEDS: THIAMINE 100MG TABLET PO SCH ×2 (08:07→19:48)
[2018-09-19] MEDS: MULTIVITAMIN 1 TABLET PO SCH (08:07)
[2018-09-19] MEDS: SENNA/DOCUSATE TABLET PO SCH (08:07)
[2018-09-19] MEDS: POTASSIUM CHLORIDE 20 MEQ TAB.ER.PRT PO SCH ×2 (08:07→17:13)
[2018-09-19] MEDS: LEVOTHYROXINE 100 MCG TABLET PO SCH (08:07)
[2018-09-19 12:46] VITALS: BP 130/81
[2018-09-19] MEDS: SUCRALFATE 1 GM/10 ML UDC PO SCH ×3 (13:24→19:48)
[2018-09-19] MEDS: PANTOPROZOLE 40MG TABLET PO SCH (17:13)
[2018-09-19 19:08] VITALS: BP 115/74
[2018-09-20 01:18] VITALS: BP 126/81
[2018-09-20] MEDS: D5%-0.9% NACL 1,000 ML IV SCH ×2 (05:29→21:26)
[2018-09-20] MEDS: PANTOPROZOLE 40MG TABLET PO SCH ×2 (05:29→16:24)
[2018-09-20 06:50] LABS: ALBUMIN 2.6 g/dL (3.4-5.0); ANION GAP 8 mmol/L (5-15); CALCIUM 8.1 mg/dL (8.5-10.1); CHLORIDE 106 mmol/L (98-107)
[2018-09-20 06:51] LABS: CREATININE 0.49 mg/dL (0.55-1.02)
[2018-09-20 07:19] VITALS: BP 115/74
[2018-09-20] MEDS: SUCRALFATE 1 GM/10 ML UDC PO SCH ×4 (07:27→21:26)
[2018-09-20] MEDS: LEVOTHYROXINE 100 MCG TABLET PO SCH (07:28)
[2018-09-20] MEDS: THIAMINE 100MG TABLET PO SCH ×2 (08:54→21:26)
[2018-09-20] MEDS: MULTIVITAMIN 1 TABLET PO SCH (08:54)
[2018-09-20] MEDS: SENNA/DOCUSATE TABLET PO SCH (08:54)
[2018-09-20] MEDS: FOLIC ACID 1 MG TABLET PO SCH (08:54)
[2018-09-20] MEDS: POTASSIUM CHLORIDE 20 MEQ TAB.ER.PRT PO SCH ×2 (08:54→16:24)
[2018-09-20] MEDS ORDERED: POTASSIUM PHOSPHATE 44 MEQ in SODIUM CHLORIDE 0.9% 500 ML IV ONE (09:00)
[2018-09-20 13:11] VITALS: BP 119/78
[2018-09-20] MEDS: ONDANSETRON 2MG/ML, 2ML IVPush PRN (17:57)
[2018-09-20] MEDS: LORazepam 0.5MG TABLET PO PRN (17:57)
[2018-09-20 19:02] VITALS: BP 118/77
[2018-09-21 02:04] VITALS: BP 125/79
[2018-09-21] MEDS: PANTOPROZOLE 40MG TABLET PO SCH (05:18)
[2018-09-21 07:01] VITALS: BP 120/76
[2018-09-21] MEDS: SUCRALFATE 1 GM/10 ML UDC PO SCH ×2 (08:10→11:10)
[2018-09-21] MEDS: SENNA/DOCUSATE TABLET PO SCH (09:07)
[2018-09-21] MEDS: MULTIVITAMIN 1 TABLET PO SCH (09:07)
[2018-09-21] MEDS: THIAMINE 100MG TABLET PO SCH (09:07)
[2018-09-21] MEDS: POTASSIUM CHLORIDE 20 MEQ TAB.ER.PRT PO SCH (09:07)
[2018-09-21] MEDS: FOLIC ACID 1 MG TABLET PO SCH (09:07)
[2018-09-21] MEDS: LEVOTHYROXINE 100 MCG TABLET PO SCH (09:07)
[2018-09-21] MEDS ORDERED: HYDR25CA PO (10:37)
[2018-09-21] MEDS: D5%-0.9% NACL 1,000 ML IV SCH (10:40)
[2018-09-21] MEDS ORDERED: PANT40TA3 PO (10:41)
[2018-09-21] MEDS ORDERED: SUCR1ORA5 PO (10:41)
== END 2018-09-21 12:25 | disposition home or self-care (01) | DRG 432 ==
LOC: ED 23:07 → EDIP 23:08 → ED 23:11 → 5SO 09-17 00:03 → 4EST 09-17 15:51 → DCLOUNGE 09-21 12:15
PROVIDERS: ADMIT Internal Medicine; ATTEND Internal Medicine
DX: K70.10 Alcoholic hepatitis without ascites (principal); K29.21 Alcoholic gastritis with bleeding; K85.20 Alcohol induced acute pancreatitis without necrosis or infection; E43 Unspecified severe protein-calorie malnutrition; E87.1 Hypo-osmolality and hyponatremia; E87.2 Acidosis; F10.239 Alcohol dependence with withdrawal, unspecified; K70.30 Alcoholic cirrhosis of liver without ascites; E03.9 Hypothyroidism, unspecified; K21.9 Gastro-esophageal reflux disease without esophagitis; D75.89 Other specified diseases of blood and blood-forming organs; F10.229 Alcohol dependence with intoxication, unspecified; F41.9 Anxiety disorder, unspecified; B18.2 Chronic viral hepatitis C; E87.6 Hypokalemia; E83.42 Hypomagnesemia; E83.39 Other disorders of phosphorus metabolism; K70.0 Alcoholic fatty liver; Z88.8 Allergy status to other drugs, medicaments and biological substances; Z88.5 Allergy status to narcotic agent; Z68.22 Body mass index [BMI] 22.0-22.9, adult; Z23 Encounter for immunization; Z87.11 Personal history of peptic ulcer disease; Z90.89 Acquired absence of other organs; Z59.0 Homelessness; Z87.891 Personal history of nicotine dependence
CPT/HCPCS: 36415; 99285; J7042; 76700; 80048; 80053; 80307; 81001; 82040; 82272; 83690; 83735; 84100; 85025; 85610; 85730; 86850; 86900; 90656; 93005; 96365; 96375; G0378; J0610; J1644; J2405; J7070; 92523-GN; C9113; J2060; J3475; J7030; J7040

== ENCOUNTER 2019-02-20 11:03 | Inpatient (IN) | payer MEDICAID ==
[~2019-02-20] VITALS: Ht 149.9 cm; Wt 49.9 kg
[~2019-02-20 11:03] MED LIST changes: +HYDR25CA PO
[2019-02-20] MEDS ORDERED: THIAMINE 100 MG in SODIUM CHLORIDE 0.9% 50 ML IVPB ONE (11:30)
[2019-02-20] MEDS ORDERED: PROMETHAZINE 25 MG/ML, 1ML IM ONE (11:30)
[2019-02-20] MEDS ORDERED: FAMOTIDINE 20 MG/2 ML IVPush ONE (11:30)
[2019-02-20] MEDS ORDERED: SODIUM CHLORIDE 0.9% 1,000ML IVBOLUS ONE ×2 (11:30→13:00)
[2019-02-20] MEDS ORDERED: SODIUM CHLORIDE FLUSH 10ML SYR IVF ONE (11:30)
[2019-02-20] MEDS ORDERED: PROMETHAZINE 25 MG/ML, 1ML ONE (11:31)
[2019-02-20] MEDS ORDERED: THIAMINE 100 MG/ML, 2ML ONE (11:31)
[2019-02-20] MEDS ORDERED: LORazepam 2 MG/ML, 1ML ONE (11:32)
[2019-02-20] MEDS ORDERED: FAMOTIDINE 20 MG/2 ML ONE (11:32)
[2019-02-20] MEDS: LORazepam 2 MG/ML, 1ML IVPush PRN ×4 (11:44→21:39)
--- NOTE | 2019-02-20 11:49 | NUR ---
iv infiltrated, will replace upon return from xray
--- NOTE | 2019-02-20 11:49 | NUR ---
n/v x 1 day, detoxing from alcohol, last drink x 1 day
[2019-02-20 11:58] LABS: BASOPHILS # (AUTO) 0.02 x10^3/uL (0-0.1); BASOPHILS % (AUTO) 0 % (0-1); EOSINOPHILS # (AUTO) 0.01 x10^3/uL (0-0.4); EOSINOPHILS % (AUTO) 0 % (1-7); LYMPHOCYTES # (AUTO) 0.95 x10^3/uL (1-3.4); LYMPHOCYTES % (AUTO) 10 % (22-44); MD NO; MEAN CORPUSCULAR HEMOGLOBIN 33.5 pg (27.0-34.8); MEAN CORPUSCULAR HGB CONC 33.6 g/dL (32.4-35.8); MEAN CORPUSCULAR VOLUME 99.7 fL (80-100); MEAN PLATELET VOLUME 7.3 fL (7.4-10.4); MONOCYTES # (AUTO) 0.45 x10^3/uL (0.2-0.8); MONOCYTES % (AUTO) 5 % (2-9); NEUTROPHILS % (AUTO) 85 % (42-75); PLATELET COUNT 228 x10^3/uL (130-400); RED BLOOD COUNT 4.17 x10^6/uL (3.82-5.3); RED CELL DISTRIBUTION WIDTH 15.4 % (9.6-15.2)
[2019-02-20 12:03] LABS: ALANINE AMINOTRANSFERASE 72 U/L (12-78); ALBUMIN 3.9 g/dL (3.4-5.0); ANION GAP 20 mmol/L (5-15); CALCIUM 8.5 mg/dL (8.5-10.1); CHLORIDE 100 mmol/L (98-107); CREATININE 0.56 mg/dL (0.55-1.02)
[2019-02-20 12:05] LABS: ALKALINE PHOSPHATASE 141 U/L (45-117); BILIRUBIN,TOTAL 0.6 mg/dL (0.2-1.0); TOTAL PROTEIN 7.6 g/dL (6.4-8.2)
--- NOTE | 2019-02-20 12:20 | NUR ---
pt recieved new iv. pt recieved medicaations for nausea, vomitting. see Emar. pt reports no feelings of nausea and no episodes of vomitting. no acute distress noted.
[2019-02-20] MEDS ORDERED: MAALOX/HYOSCYAMINE/LIDOCAINE 45 ML BTL PO ONE (13:00)
[2019-02-20] MEDS ORDERED: MAALOX/HYOSCYAMINE/LIDOCAINE 45 ML BTL ONE (13:05)
--- NOTE | 2019-02-20 13:16 | NUR ---
REPORT GIVEN TO MED/TELE, POC DISCUSSED WITH RN.
[2019-02-20 13:55] VITALS: BP 120/71
[2019-02-20] MEDS: SODIUM CHLORIDE 0.9% 1,000 ML IV SCH ×4 (14:30→22:40)
[2019-02-20] MEDS ORDERED: ONDANSETRON 2MG/ML, 2ML IVPush PRN (15:00)
[2019-02-20] MEDS ORDERED: ACETAMINOPHEN 325 MG TABLET PO PRN (15:00)
[2019-02-20] MEDS ORDERED: hydrALAzine 20 MG/ML, 1ML IVPush PRN (15:00)
[2019-02-20] MEDS ORDERED: MORPHINE SULFATE 4 MG/ML, 1ML IVPush PRN (15:00)
[2019-02-20] MEDS ORDERED: MAALOX/HYOSCYAMINE/LIDOCAINE 45 ML BTL PO PRN (15:30)
[2019-02-20] MEDS: SUCRALFATE 1 GM/10 ML UDC PO SCH ×2 (15:39→21:38)
[2019-02-20] MEDS: PANTOPROZOLE 40MG TABLET PO SCH ×2 (17:00→17:23)
[2019-02-20 17:03] LABS: BASOPHILS % (AUTO) 0 % (0-1); EOSINOPHILS % (AUTO) 0 % (1-7); LYMPHOCYTES # (AUTO) 0.82 x10^3/uL (1-3.4); LYMPHOCYTES % (AUTO) 9 % (22-44); MD NO; MEAN CORPUSCULAR HEMOGLOBIN 33.6 pg (27.0-34.8); MEAN CORPUSCULAR VOLUME 98.7 fL (80-100); MEAN PLATELET VOLUME 7.8 fL (7.4-10.4); MONOCYTES # (AUTO) 0.56 x10^3/uL (0.2-0.8); MONOCYTES % (AUTO) 6 % (2-9); NEUTROPHILS # (AUTO) 7.39 x10^3/uL (1.8-6.8); NEUTROPHILS % (AUTO) 84 % (42-75); PLATELET COUNT 180 x10^3/uL (130-400); RED BLOOD COUNT 3.74 x10^6/uL (3.82-5.3); RED CELL DISTRIBUTION WIDTH 15.4 % (9.6-15.2)
[2019-02-20 18:39] VITALS: BP 128/71
[2019-02-20] MEDS: HYDROXYZINE PAMOATE 25MG CAP PO SCH (21:38)
[2019-02-20] MEDS: MAGNESIUM OXIDE 400 MG TABLET PO SCH (21:38)
[2019-02-20 23:42] VITALS: BP 116/68
[2019-02-21 01:37] VITALS: BP 124/75
[2019-02-21] MEDS: LORazepam 2 MG/ML, 1ML IVPush PRN ×3 (04:29→16:21)
[2019-02-21] MEDS: SODIUM CHLORIDE 0.9% 1,000 ML IV SCH ×4 (04:30→22:05)
[2019-02-21] MEDS: PANTOPROZOLE 40MG TABLET PO SCH ×2 (05:43→18:04)
[2019-02-21 06:15] LABS: ALBUMIN 3.3 g/dL (3.4-5.0); ANION GAP 6 mmol/L (5-15); CALCIUM 7.9 mg/dL (8.5-10.1); CHLORIDE 110 mmol/L (98-107)
[2019-02-21 06:18] LABS: ALANINE AMINOTRANSFERASE 51 U/L (12-78); ALKALINE PHOSPHATASE 112 U/L (45-117); CREATININE 0.53 mg/dL (0.55-1.02); TOTAL PROTEIN 6.5 g/dL (6.4-8.2)
[2019-02-21 07:00] VITALS: BP 133/82
[2019-02-21] MEDS: SUCRALFATE 1 GM/10 ML UDC PO SCH ×4 (07:00→22:04)
[2019-02-21 09:00] VITALS: BP 124/81
[2019-02-21] MEDS ORDERED: MAGNESIUM SULFATE PMX 2GM/50ML 50 ML IV ONE ×2 (10:00→13:00)
[2019-02-21] MEDS ORDERED: POTASSIUM PHOSPHATE 44 MEQ in SODIUM CHLORIDE 0.9% 500 ML IV ONE (10:00)
[2019-02-21] MEDS ORDERED: CHLORDIAZEPOXIDE 25 MG CAPSULE PO SCH (11:00)
[2019-02-21] MEDS: HYDROXYZINE PAMOATE 25MG CAP PO SCH ×2 (11:04→22:04)
[2019-02-21] MEDS: THIAMINE 100MG TABLET PO SCH (11:04)
[2019-02-21] MEDS: FOLIC ACID 1 MG TABLET PO SCH (11:04)
[2019-02-21] MEDS: MAGNESIUM OXIDE 400 MG TABLET PO SCH ×2 (11:04→22:04)
[2019-02-21] MEDS: CHLORDIAZEPOXIDE 25 MG CAPSULE PO SCH ×3 (11:05→22:05)
[2019-02-21] MEDS: BACLOFEN 10 MG TABLET PO SCH ×3 (11:05→22:05)
[2019-02-21] MEDS: LEVOTHYROXINE 100 MCG TABLET PO SCH (11:06)
[2019-02-21] MEDS: MULTIVITAMIN 1 TABLET PO SCH (11:06)
[2019-02-21 14:00] VITALS: BP 124/82
--- NOTE | 2019-02-21 18:41 | NUR ---
REC FULL LIQUID DIET; swallow precautions sheet posted at bedside Addendum: 02/21/19 at [address] Amended: Links added.
[2019-02-21 20:29] VITALS: BP 128/83
[2019-02-22 01:19] VITALS: BP 128/83
[2019-02-22] MEDS: LEVOTHYROXINE 100 MCG TABLET PO SCH (05:44)
[2019-02-22] MEDS: CHLORDIAZEPOXIDE 25 MG CAPSULE PO SCH ×4 (05:44→20:01)
[2019-02-22] MEDS: PANTOPROZOLE 40MG TABLET PO SCH ×2 (05:44→16:15)
[2019-02-22] MEDS: SODIUM CHLORIDE 0.9% 1,000 ML IV SCH ×3 (05:46→20:02)
[2019-02-22 06:35] LABS: ALBUMIN 3.1 g/dL (3.4-5.0); ANION GAP 8 mmol/L (5-15); CALCIUM 8.5 mg/dL (8.5-10.1); CHLORIDE 111 mmol/L (98-107)
[2019-02-22 06:39] LABS: ALANINE AMINOTRANSFERASE 54 U/L (12-78); ALKALINE PHOSPHATASE 113 U/L (45-117); BILIRUBIN,TOTAL 0.7 mg/dL (0.2-1.0); CREATININE 0.65 mg/dL (0.55-1.02); TOTAL PROTEIN 6.5 g/dL (6.4-8.2)
[2019-02-22 07:34] VITALS: BP 118/74
[2019-02-22] MEDS: SUCRALFATE 1 GM/10 ML UDC PO SCH ×4 (08:23→20:00)
[2019-02-22] MEDS: THIAMINE 100MG TABLET PO SCH (08:23)
[2019-02-22] MEDS: BACLOFEN 10 MG TABLET PO SCH ×3 (08:24→20:01)
[2019-02-22] MEDS: MAGNESIUM OXIDE 400 MG TABLET PO SCH ×2 (08:24→20:01)
[2019-02-22] MEDS: MULTIVITAMIN 1 TABLET PO SCH (08:24)
[2019-02-22] MEDS: FOLIC ACID 1 MG TABLET PO SCH (08:24)
[2019-02-22] MEDS: HYDROXYZINE PAMOATE 25MG CAP PO SCH ×2 (08:24→20:01)
[2019-02-22 12:36] LABS: CLOSTRIDIUM DIFFICILE ANTIGEN NEGATIVE; CLOSTRIDIUM DIFFICILE TOXIN NEGATIVE (Negative)
[2019-02-22 12:56] VITALS: BP 132/75
[2019-02-22 18:55] VITALS: BP 158/89
[2019-02-23 00:38] VITALS: BP 144/87
[2019-02-23] MEDS: SODIUM CHLORIDE 0.9% 1,000 ML IV SCH (03:15)
[2019-02-23] MEDS: PANTOPROZOLE 40MG TABLET PO SCH (05:39)
[2019-02-23] MEDS: LEVOTHYROXINE 100 MCG TABLET PO SCH (05:39)
[2019-02-23] MEDS: CHLORDIAZEPOXIDE 25 MG CAPSULE PO SCH (05:39)
[2019-02-23 06:43] VITALS: BP 151/94
[2019-02-23] MEDS: MAGNESIUM OXIDE 400 MG TABLET PO SCH (07:55)
[2019-02-23] MEDS: BACLOFEN 10 MG TABLET PO SCH (08:12)
[2019-02-23] MEDS: SUCRALFATE 1 GM/10 ML UDC PO SCH (08:12)
[2019-02-23] MEDS: MULTIVITAMIN 1 TABLET PO SCH (08:12)
[2019-02-23] MEDS: FOLIC ACID 1 MG TABLET PO SCH (08:13)
[2019-02-23] MEDS: THIAMINE 100MG TABLET PO SCH (08:13)
[2019-02-23] MEDS: HYDROXYZINE PAMOATE 25MG CAP PO SCH (08:13)
[2019-02-23] MEDS ORDERED: CHLO25CA9 PO (08:59)
[2019-02-23] MEDS ORDERED: THIA100T67 PO (09:00)
[2019-02-23] MEDS ORDERED: MULT1TAB60 PO (09:00)
[2019-02-23] MEDS ORDERED: FOLI-17 PO (09:00)
[2019-02-23] MEDS ORDERED: MAGN400T26 PO (09:00)
== END 2019-02-23 11:25 | disposition home or self-care (01) | DRG 641 ==
LOC: ED 11:04 → EDIP 12:45 → 4WST 13:35 → DCLOUNGE 02-23 11:10
PROVIDERS: ADMIT Internal Medicine; ATTEND Internal Medicine
PROC: BD11YZZ Fluoroscopy of Esophagus using Other Contrast (ICD-10-PCS; principal; 2019-02-20)
DX: E87.6 Hypokalemia (principal); E83.39 Other disorders of phosphorus metabolism; E87.2 Acidosis; B18.2 Chronic viral hepatitis C; E03.9 Hypothyroidism, unspecified; E83.42 Hypomagnesemia; E86.0 Dehydration; K44.9 Diaphragmatic hernia without obstruction or gangrene; K70.10 Alcoholic hepatitis without ascites; R13.10 Dysphagia, unspecified; K70.30 Alcoholic cirrhosis of liver without ascites; F10.10 Alcohol abuse, uncomplicated; F41.9 Anxiety disorder, unspecified; R11.2 Nausea with vomiting, unspecified; J39.2 Other diseases of pharynx; K22.8 Other specified diseases of esophagus; R19.7 Diarrhea, unspecified; R00.0 Tachycardia, unspecified; Z87.11 Personal history of peptic ulcer disease; Z87.891 Personal history of nicotine dependence
CPT/HCPCS: 36415; 74022; 74220; 99285; J3490; 80053; 80307; 83690; 83735; 84100; 84443; 85025; 87324; 93005; 96365; 96372; G0378; J2405; J2550; J3411; J2060; J3475; J7030; J7040

== ENCOUNTER 2019-06-21 04:42 | Emergency (ER) | payer MEDICAID ==
[~2019-06-21] VITALS: Ht 149.9 cm; Wt 55.0 kg
[~2019-06-21 04:42] MED LIST changes: +CARV6.2512 PO; +CHLO25CA9 PO; +MAGN400T26 PO; +MULT1TAB60 PO
[2019-06-21] MEDS ORDERED: ONDANSETRON 2MG/ML, 2ML ONE (05:08)
[2019-06-21] MEDS ORDERED: THIAMINE 100 MG/ML, 2ML ONE (05:08)
[2019-06-21] MEDS ORDERED: FAMOTIDINE 20 MG/2 ML ONE (05:09)
--- NOTE | 2019-06-21 05:26 | NUR ---
Patient to room with IRIS, patient appears unkempt with disheveled hair, clothes with evidence of soil (suspect dirt) and hands with dirt embedded under fingernails. Patient has bag with emesis but only dry heaves regulary every 10-15 seconds. Transferred self into [facility]. Requesting need for bathroom prior to being attached to monitor. On return patient reattached to monitor. VSS but hypertensive with hr low grade tachycardia (see triage flowsheet.) On completion of triage screen RN to nursing station. Informed provider of constant emesis. Provider to bedside soon after. Assessment and orders received for antiemetics. Administered per dec. Patient requesting bathroom again. Slight incontinence of stool. Patient returned to room, IV bolus reattached and running slowly through IV started captain/check airman by IRIS. Patient continues to have dry heaves. Provided with additional emesis bags. Awaiting labs; antiemetic effects.
[2019-06-21] MEDS ORDERED: ONDANSETRON 2MG/ML, 2ML IVPush ONE (05:30)
[2019-06-21] MEDS ORDERED: FAMOTIDINE 20 MG/2 ML IV ONE (05:30)
[2019-06-21] MEDS ORDERED: SODIUM CHLORIDE 0.9% 1,000ML IVBOLUS ONE (05:30)
[2019-06-21] MEDS ORDERED: THIAMINE 100 MG/ML, 2ML IM ONE (05:30)
[2019-06-21 05:48] LABS: BASOPHILS # (AUTO) 0.02 x10^3/uL (0-0.1); BASOPHILS % (AUTO) 0 % (0-1); EOSINOPHILS # (AUTO) 0.03 x10^3/uL (0-0.4); EOSINOPHILS % (AUTO) 0 % (1-7); LYMPHOCYTES # (AUTO) 1.48 x10^3/uL (1-3.4); LYMPHOCYTES % (AUTO) 14 % (22-44); MD NO; MEAN CORPUSCULAR HEMOGLOBIN 32.2 pg (27.0-34.8); MEAN CORPUSCULAR HGB CONC 33.8 g/dL (32.4-35.8); MEAN CORPUSCULAR VOLUME 95.4 fL (80-100); MEAN PLATELET VOLUME 7.7 fL (7.4-10.4); MONOCYTES # (AUTO) 0.51 x10^3/uL (0.2-0.8); MONOCYTES % (AUTO) 5 % (2-9); NEUTROPHILS # (AUTO) 8.96 x10^3/uL (1.8-6.8); NEUTROPHILS % (AUTO) 81 % (42-75); PLATELET COUNT 275 x10^3/uL (130-400); RED BLOOD COUNT 4.67 x10^6/uL (3.82-5.3); RED CELL DISTRIBUTION WIDTH 16.5 % (9.6-15.2)
[2019-06-21 05:58] LABS: ALBUMIN 4.2 g/dL (3.4-5.0); ANION GAP 14 mmol/L (5-15); CHLORIDE 104 mmol/L (98-107)
[2019-06-21] MEDS ORDERED: PROMETHAZINE 25 MG/ML, 1ML IM ONE (06:00)
[2019-06-21 06:02] LABS: ALANINE AMINOTRANSFERASE 117 U/L (12-78); ALKALINE PHOSPHATASE 108 U/L (45-117); BILIRUBIN,TOTAL 0.9 mg/dL (0.2-1.0); TOTAL PROTEIN 7.9 g/dL (6.4-8.2)
[2019-06-21] MEDS ORDERED: PROMETHAZINE 25 MG/ML, 1ML ONE (06:08)
--- NOTE | 2019-06-21 06:59 | NUR ---
REPORT FROM KARIN HARRIS. ASSUMED CARE OF PATIENT AT THIS TIME. RESULTS BACK, CHART UP FOR RECHECK.
[2019-06-21] MEDS ORDERED: LORazepam 1MG TABLET PO ONE (07:00)
[2019-06-21] MEDS ORDERED: LORazepam 1MG TABLET ONE (07:03)
[2019-06-21 07:07] VITALS: BP 150/94
--- NOTE | 2019-06-21 07:10 | NUR ---
NEW ORDERS, ATIVAN ADMINISTERED PER ORDER, VS UPDATED IN CHART, PATIENT ANXIOUS, LAYING IN GURNEY, COOPERATIVE. AWAITING FURTHER ORDERS. NO ADDITIONAL NEEDS AT THIS TIME.
--- NOTE | 2019-06-21 07:49 | NUR ---
PATIENT AMB WITH STEADY GAIT TO THE PHONE DOWN THE [place] TO CALL OUT FOR WORK, PATIENT TO BE DC'D PER ERP. AWAITING DC ORDERS.
--- NOTE | 2019-06-21 08:16 | NUR ---
Patient/Caregiver given discharge instructions and they have confirmed that they understand the instructions. Patient ambulatory with steady gait.
== END 2019-06-21 08:17 | disposition home or self-care (01) ==
LOC: ED 04:56
DX: K29.20 Alcoholic gastritis without bleeding (principal); R10.13 Epigastric pain; F10.239 Alcohol dependence with withdrawal, unspecified; F17.210 Nicotine dependence, cigarettes, uncomplicated; R11.2 Nausea with vomiting, unspecified
CPT/HCPCS: 36415; 80053; 80307; 83690; 85025; 96361; 96372; 96374; 96375; 99283; J2405; J2550; J3411; J3490; J7030

== ENCOUNTER 2019-09-24 22:55 | Emergency (ER) | payer MEDICAID ==
[~2019-09-24] VITALS: Ht 149.9 cm; Wt 51.0 kg
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
--- NOTE | 2019-09-24 23:20 | NUR ---
PA AT BEDSIDE TO ASSESS PT
[2019-09-24] MEDS ORDERED: ONDANSETRON 2MG/ML, 2ML IVPush ONE (23:30)
[2019-09-24] MEDS ORDERED: SODIUM CHLORIDE 0.9% 1,000ML IVBOLUS ONE (23:30)
[2019-09-24] MEDS ORDERED: SODIUM CHLORIDE FLUSH 10ML SYR IVF ONE (23:30)
[2019-09-24] MEDS ORDERED: FAMOTIDINE 20 MG/2 ML IV ONE (23:30)
[2019-09-24] MEDS ORDERED: ONDANSETRON 2MG/ML, 2ML ONE (23:40)
[2019-09-24] MEDS ORDERED: FAMOTIDINE 20 MG/2 ML ONE (23:40)
[2019-09-24 23:47] LABS: BASOPHILS # (AUTO) 0.01 x10^3/uL (0-0.1); BASOPHILS % (AUTO) 0 % (0-1); EOSINOPHILS # (AUTO) 0.09 x10^3/uL (0-0.4); EOSINOPHILS % (AUTO) 2 % (1-7); LYMPHOCYTES # (AUTO) 1.48 x10^3/uL (1-3.4); LYMPHOCYTES % (AUTO) 30 % (22-44); MD NO; MEAN CORPUSCULAR HEMOGLOBIN 32.7 pg (27.0-34.8); MEAN CORPUSCULAR HGB CONC 32.9 g/dL (32.4-35.8); MEAN CORPUSCULAR VOLUME 99.2 fL (80-100); MEAN PLATELET VOLUME 7.1 fL (7.4-10.4); MONOCYTES # (AUTO) 0.55 x10^3/uL (0.2-0.8); MONOCYTES % (AUTO) 11 % (2-9); NEUTROPHILS # (AUTO) 2.87 x10^3/uL (1.8-6.8); NEUTROPHILS % (AUTO) 58 % (42-75); PLATELET COUNT 257 x10^3/uL (130-400); RED BLOOD COUNT 4.87 x10^6/uL (3.82-5.3); RED CELL DISTRIBUTION WIDTH 14.8 % (9.6-15.2)
[2019-09-24 23:57] LABS: ALANINE AMINOTRANSFERASE 62 U/L (12-78); ANION GAP 11 mmol/L (5-15); CALCIUM 8.4 mg/dL (8.5-10.1); CHLORIDE 98 mmol/L (98-107)
[2019-09-24 23:59] LABS: ALKALINE PHOSPHATASE 132 U/L (45-117); BILIRUBIN,TOTAL 0.8 mg/dL (0.2-1.0); TOTAL PROTEIN 8.6 g/dL (6.4-8.2)
--- NOTE | 2019-09-25 00:08 | NUR ---
PT UP TO RESTROOM AT THIS TIME, STEADY GAIT NO ASSISTANCE REQUIRED
[2019-09-25] MEDS ORDERED: PROMETHAZINE 25 MG/ML, 1ML IM ONE (00:13)
[2019-09-25] MEDS ORDERED: PROMETHAZINE 25 MG/ML, 1ML ONE (00:15)
--- NOTE | 2019-09-25 00:20 | NUR ---
PT MEDICATED PER MAR
--- NOTE | 2019-09-25 00:20 | NUR ---
PT LAYING ON BARBARA STS "PLEASE DONT MAKE ME GO OUT IN THE NIGHT." PT STS SHE DOESN'T WANT TO BE D/C FROM [facility].
[2019-09-25 01:26] VITALS: BP 130/69
--- NOTE | 2019-09-25 01:27 | NUR ---
PT RESTING ON [employer] CALL LIGHT IN REACH , HINA, ZOILA
== END 2019-09-25 02:04 | disposition home or self-care (01) ==
LOC: ED 23:34
DX: F10.229 Alcohol dependence with intoxication, unspecified (principal); R11.2 Nausea with vomiting, unspecified; F17.210 Nicotine dependence, cigarettes, uncomplicated
CPT/HCPCS: 36415; 80053; 80307; 83690; 85025; 93005; 96372; 96374; 96375; 99284; J2405; J2550; J3490; J7030

== ENCOUNTER 2021-01-28 19:39 | Emergency (ER) | payer MEDICAID ==
[~2021-01-28] VITALS: Ht 149.9 cm; Wt 52.0 kg
[~2021-01-28 19:39] MED LIST changes: -FOLI-17 PO; +FOLI1TAB32 PO; +MULT-449 PO; -MULT1TAB60 PO
[2021-01-28] MEDS ORDERED: HYDROcodone/APAP 5/325 TABLET ONE (19:46)
--- NOTE | 2021-01-28 19:56 | NUR ---
left knee pain s/p fall on left knee this am
[2021-01-28] MEDS ORDERED: HYDROcodone/APAP 5/325 TABLET PO ONE (20:00)
[2021-01-28] MEDS ORDERED: KETOROLAC 30 MG/1 ML IM ONE (21:00)
[2021-01-28] MEDS ORDERED: KETOROLAC 30 MG/1 ML ONE (21:01)
[2021-01-28 21:15] VITALS: BP 120/80
== END 2021-01-28 21:19 ==
LOC: ED 21:10
DX: S80.02XA Contusion of left knee, initial encounter (principal); Z86.19 Personal history of other infectious and parasitic diseases; Z87.891 Personal history of nicotine dependence; W01.0XXA Fall on same level from slipping, tripping and stumbling without subsequent striking against object, initial encounter; Y93.89 Activity, other specified; Y92.009 Unspecified place in unspecified non-institutional (private) residence as the place of occurrence of the external cause; Y99.8 Other external cause status
CPT/HCPCS: 29505; 99283